=== PATIENT | male | born 1965 | race Caucasian/White ===

== ENCOUNTER 2021-10-05 19:36 | Emergency (ER) | payer OTHER ==
[~2021-10-05] VITALS: Ht 167.6 cm; Wt 77.1 kg
[2021-10-05 20:13] VITALS: BP 152/93
[2021-10-05] MEDS ORDERED: IBUPROFEN 400 MG TABLET ONE (20:52)
[2021-10-05] MEDS ORDERED: IBUPROFEN 400 MG TABLET PO ONE (21:00)
[2021-10-05] MEDS ORDERED: IBUP-1957 PO (21:47)
--- NOTE | 2021-10-05 21:52 | NUR ---
Patient discharged to home in stable condition. Written and verbal after care instructions given. Patient verbalizes understanding of instruction.
== END 2021-10-05 21:52 | disposition home or self-care (01) ==
LOC: ER 19:50
DX: S49.91XA Unspecified injury of right shoulder and upper arm, initial encounter (principal); Z60.2 Problems related to living alone; X50.0XXA Overexertion from strenuous movement or load, initial encounter; Y93.89 Activity, other specified; Y92.89 Other specified places as the place of occurrence of the external cause; Y99.8 Other external cause status
CPT/HCPCS: 73030-TC

== ENCOUNTER 2023-05-19 10:51 | Inpatient (IN) | payer OTHER ==
[~2023-05-19] VITALS: Ht 172.7 cm; Wt 72.1 kg
[~2023-05-19 10:51] MED LIST: IBUP-1957 PO
[2023-05-19 11:22] LABS: BASOPHILS # (AUTO) 0.1 K/uL (0.0-0.2); BASOPHILS % (AUTO) 1.1 % (0.0-2.0); CALCIUM, SERUM 7.6 mg/dL (8.5-10.1); CARBON DIOXIDE 21 mmol/L (21-32); CHLORIDE 105 mmol/L (98-107); EOSINOPHILS % (AUTO) 0.2 % (0.0-6.0); GLUCOSE 106 mg/dL (74-106); HEMATOCRIT 42 % (39-51); HEMOGLOBIN 13.6 g/dL (13.5-17.5); LYMPHOCYTES # (AUTO) 1.2 K/uL (0.8-4.8); LYMPHOCYTES % (AUTO) 23.2 % (20.0-44.0); MEAN CORPUSCULAR HEMOGLOBIN 27 PG (26.0-33.0); MEAN CORPUSCULAR HGB CONC 33 g/dl (31.0-36.0); MEAN CORPUSCULAR VOLUME 83 fL (80-96); MONOCYTES # (AUTO) 0.4 K/uL (0.1-1.30); MONOCYTES % (AUTO) 7.5 % (2.0-12.0); NEUTROPHILS # (AUTO) 3.6 K/uL (1.8-8.9); PLATELET COUNT (AUTO) 160 K/uL (150-450); POTASSIUM 3.8 mmol/L (3.5-5.1); RED BLOOD CELL COUNT(AUTO) 5.04 MIL/uL (4.5-6.0); RED CELL DISTRIBUTION WIDTH 21.2 % (11.5-15.0); SODIUM SERUM 137 mmol/L (136-145); UREA NITROGEN, BLOOD 27 mg/dL (7-18); WHITE BLOOD COUNT (AUTO) 5.4 K/uL (4.3-11.0)
[2023-05-19 11:30] LABS: ALANINE AMINOTRANSFERASE 271 U/L (12-78); ALBUMIN 2.9 g/dL (3.4-5.0); ALCOHOL, BLOOD 518 mg/dL (0-10); ALKALINE PHOSPHATASE 59 U/L (46-116); ASPARTATE AMINOTRANSFERASE 257 U/L (15-37); BILIRUBIN,DIRECT 0.4 mg/dL (0.0-0.2); BILIRUBIN,TOTAL 0.6 mg/dL (0.2-1.0); SALICYLATE 0.4 mg/dL (2.8-20.0); TOTAL PROTEIN, SERUM 6.6 g/dL (6.4-8.2)
[2023-05-19 11:31] LABS: ACETAMINOPHEN <10 ug/ml (10-30)
[2023-05-19 11:42] LABS: APPEARANCE,URINE Clear (CLEAR); BILIRUBIN,URINE Negative (NEGATIVE); BLOOD, URINE Trace-intact Ery/uL (NEGATIVE); COLOR,URINE YELLOW (YELLOW); KETONES,URINE Trace mg/dL (NEGATIVE); LEUKOCYTE ESTERASE ,URINE Negative (NEGATIVE); NITRITE, URINE Negative (NEGATIVE); PROTEIN,URINE Trace mg/dl (NEGATIVE); UGLUCOSE Negative (NEGATIVE)
[2023-05-19 11:49] LABS: ADD URINE CULTURE NO; AMPHETAMINE, URINE NEGATIVE (NEGATIVE); BACTERIA,URINE Few /HPF (None Seen); BARBITURATE, URINE NEGATIVE (NEGATIVE); BENZODIAZEPINE, URINE NEGATIVE (NEGATIVE); CANNABINOID, URINE NEGATIVE (NEGATIVE); COCCAINE, URINE NEGATIVE (NEGATIVE); OPIATE, URINE NEGATIVE (NEGATIVE); PHENCYCLIDINE SCREEN,URINE NEGATIVE (NEGATIVE); SQUAMOUS EPITHELIAL CELL,UR Few /HPF (None Seen); WBC,URINE 0-2 /HPF (0-3)
[2023-05-19] MEDS ORDERED: ONDANSETRON HCL/PF 4 MG/2 ML VIAL ONE (15:47)
[2023-05-19] MEDS ORDERED: PANTOPRAZOLE 40 MG VIAL ONE (15:47)
[2023-05-19] MEDS: ONDANSETRON HCL/PF 4 MG/2 ML VIAL IV ONE (15:54)
[2023-05-19] MEDS: PANTOPRAZOLE 80 MG in IV NS 0.9% 500 ML IV ONE ×2 (15:54→15:55)
[2023-05-19] MEDS: IV NS 0.9% 500 ML BAG IV ONE (15:59)
[2023-05-19] MEDS ORDERED: BUPR300T52 PO (16:08)
[2023-05-19] MEDS ORDERED: HYDR50TA61 PO (16:08)
[2023-05-19] MEDS ORDERED: BUSP30TA2 PO (16:08)
[2023-05-19] MEDS ORDERED: ESCI10TA PO (16:08)
[2023-05-19] MEDS ORDERED: TRAZ-257 PO (16:08)
[2023-05-19] MEDS ORDERED: MIRT-91 PO (16:08)
[2023-05-19] MEDS: LORAZEPAM INJ 2 MG/ML VIAL IV ONE (16:30)
[2023-05-19] MEDS ORDERED: LORAZEPAM INJ 2 MG/ML VIAL ONE (16:31)
[2023-05-19 16:41] LABS: HEMOGLOBIN 12.4 g/dL (13.5-17.5)
[2023-05-19] MEDS ORDERED: diphenhydrAMINE HCL 50 MG/ML VIAL ONE (16:56)
[2023-05-19] MEDS: diphenhydrAMINE HCL 50 MG/ML VIAL IV ONE (17:00)
[2023-05-19] MEDS ORDERED: CEFTRIAXONE 1 G VIAL ONE (18:11)
[2023-05-19] MEDS ORDERED: LIDOCAINE 1% INJ 50 ML MDV IJ ONE (18:13)
[2023-05-19] MEDS: CEFTRIAXONE 1 G VIAL IM ONE (18:15)
[2023-05-19] MEDS: OCTREOTIDE 50 MCG in IV NS 0.9% 50 ML IJ ONE (18:35)
[2023-05-19] MEDS ORDERED: Z GUARD REMEDY 4 OZ OINT TP PRN (20:30)
[2023-05-19] MEDS ORDERED: OCTREOTIDE 500 MCG in IV NS 0.9% 99 ML IV PRN (20:30)
[2023-05-19] MEDS ORDERED: IV NS 0.9% 250 ML IV ONE (20:37)
[2023-05-19] MEDS ORDERED: IOHEXOL-300 100 ML VIAL IV ONE (20:37)
[2023-05-19] MEDS: Thiamine 100 MG in IV D5W 50 ML IV ONE (21:39)
[2023-05-19] MEDS: CEFTRIAXONE 1 G in IV D5W 50 ML IV SCH (21:40)
[2023-05-19] MEDS: PANTOPRAZOLE 40 MG VIAL IV SCH (21:51)
[2023-05-19] MEDS: LORAZEPAM INJ 2 MG/ML VIAL IV PRN (21:58)
[2023-05-20] VITALS: BP 148/86; TEMP 97.5
[2023-05-20] MEDS: OCTREOTIDE 1,250 MCG in IV NS 0.9% 247.5 ML IV PRN (00:52)
[2023-05-20] MEDS: IV D5/0.45 NACL 1,000 ML IV PRN (00:53)
[2023-05-20] MEDS: OLANZAPINE 10 MG VIAL IM ONE (01:22)
[2023-05-20] MEDS ORDERED: SOD FERRIC GLUC 62.5 MG/5 ML AMPUL IV ONE (03:09)
[2023-05-20] MEDS ORDERED: METRONIDAZOLE 500MG/ NS 100ML 100 ML IV ONE (03:09)
[2023-05-20] MEDS: METRONIDAZOLE 500MG/ NS 100ML 500 MG in PREMIX 1 EA IV SCH (03:32)
[2023-05-20 04:00] VITALS: BP 135/80; TEMP 97.5
[2023-05-20] MEDS: SOD FERRIC GLUC 125 MG in IV NS 0.9% 100 ML IV SCH ×2 (04:51→14:28)
[2023-05-20 07:05] LABS: BASOPHILS # (AUTO) 0.1 K/uL (0.0-0.2); BASOPHILS % (AUTO) 0.9 % (0.0-2.0); EOSINOPHILS % (AUTO) 0.4 % (0.0-6.0); HEMATOCRIT 28 % (39-51); HEMOGLOBIN 9.3 g/dL (13.5-17.5); LYMPHOCYTES # (AUTO) 1.2 K/uL (0.8-4.8); LYMPHOCYTES % (AUTO) 18.9 % (20.0-44.0); MEAN CORPUSCULAR HEMOGLOBIN 28 PG (26.0-33.0); MEAN CORPUSCULAR HGB CONC 33 g/dl (31.0-36.0); MEAN CORPUSCULAR VOLUME 84 fL (80-96); MONOCYTES # (AUTO) 0.4 K/uL (0.1-1.30); MONOCYTES % (AUTO) 5.7 % (2.0-12.0); NEUTROPHILS # (AUTO) 4.8 K/uL (1.8-8.9); NEUTROPHILS % (AUTO) 74.1 % (43.0-81.0); PLATELET COUNT (AUTO) 113 K/uL (150-450); RED BLOOD CELL COUNT(AUTO) 3.33 MIL/uL (4.5-6.0); RED CELL DISTRIBUTION WIDTH 20.8 % (11.5-15.0); WHITE BLOOD COUNT (AUTO) 6.5 K/uL (4.3-11.0)
[2023-05-20 07:10] LABS: ALBUMIN 2.5 g/dL (3.4-5.0); BILIRUBIN,DIRECT 0.4 mg/dL (0.0-0.2); BILIRUBIN,TOTAL 1.1 mg/dL (0.2-1.0); TOTAL PROTEIN, SERUM 5.8 g/dL (6.4-8.2)
[2023-05-20 07:31] LABS: THYROID STIMULATING HORMONE 0.437 uIU/mL (0.358-3.74)
[2023-05-20 07:37] LABS: CALCIUM, SERUM 7.3 mg/dL (8.5-10.1); MAGNESIUM 1.4 mg/dL (1.8-2.4); PHOSPHORUS 2.8 mg/dL (2.5-4.9); POTASSIUM 4.2 mmol/L (3.5-5.1)
[2023-05-20 08:00] VITALS: BP 128/85; TEMP 98.2; O2SAT 98
[2023-05-20] MEDS: FOLIC ACID 1 MG TABLET PO SCH (08:37)
[2023-05-20] MEDS: THIAMINE HCL 100 MG TABLET PO SCH (08:38)
[2023-05-20] MEDS: Magnesium 1GM/D5W 100ML PREMIX 100 ML IV SCH (10:00)
[2023-05-20 12:00] VITALS: BP 138/87; TEMP 98.2; O2SAT 98
[2023-05-20] MEDS ORDERED: SOD FERRIC GLUC 125 MG in IV NS 0.9% 100 ML IV SCH (14:00)
[2023-05-20 16:00] VITALS: BP 130/81; TEMP 97.8; O2SAT 97
[2023-05-20 20:00] VITALS: TEMP 98.2
[2023-05-21] VITALS: BP 133/92; TEMP 98.2; O2SAT 100
[2023-05-21] MEDS: ONDANSETRON HCL/PF 4 MG/2 ML VIAL IVP PRN (01:22)
[2023-05-21 04:00] VITALS: BP 141/93; TEMP 98.1; O2SAT 100
[2023-05-21] MEDS: ACETAMINOPHEN 325 MG TABLET PO PRN (05:22)
[2023-05-21 06:50] LABS: BASOPHILS % (AUTO) 0.7 % (0.0-2.0); EOSINOPHILS # (AUTO) 0.1 K/uL (0.0-0.7); EOSINOPHILS % (AUTO) 1.3 % (0.0-6.0); HEMATOCRIT 27 % (39-51); HEMOGLOBIN 9.2 g/dL (13.5-17.5); LYMPHOCYTES # (AUTO) 1.1 K/uL (0.8-4.8); LYMPHOCYTES % (AUTO) 16.6 % (20.0-44.0); MEAN CORPUSCULAR HEMOGLOBIN 28 PG (26.0-33.0); MEAN CORPUSCULAR HGB CONC 34 g/dl (31.0-36.0); MEAN CORPUSCULAR VOLUME 84 fL (80-96); MONOCYTES # (AUTO) 0.5 K/uL (0.1-1.30); MONOCYTES % (AUTO) 7.3 % (2.0-12.0); NEUTROPHILS # (AUTO) 4.9 K/uL (1.8-8.9); NEUTROPHILS % (AUTO) 74.1 % (43.0-81.0); PLATELET COUNT (AUTO) 121 K/uL (150-450); RED BLOOD CELL COUNT(AUTO) 3.25 MIL/uL (4.5-6.0); RED CELL DISTRIBUTION WIDTH 20.9 % (11.5-15.0); WHITE BLOOD COUNT (AUTO) 6.6 K/uL (4.3-11.0)
[2023-05-21 06:57] LABS: CALCIUM, SERUM 7.4 mg/dL (8.5-10.1); CREATININE 1.1 mg/dL (0.6-1.3); MAGNESIUM 2.1 mg/dL (1.8-2.4); PHOSPHORUS 2.9 mg/dL (2.5-4.9); POTASSIUM 3.7 mmol/L (3.5-5.1)
[2023-05-21 08:00] VITALS: BP 138/87; TEMP 97.9; O2SAT 100
[2023-05-21] MEDS: MIRTAZAPINE 15 MG TABLET PO SCH (11:49)
[2023-05-21] MEDS: ESCITALOPRAM OXALATE (10 MG) 10 MG TABLET PO SCH (11:50)
[2023-05-21] MEDS: BUPROPION XL 150 MG TAB.ER.24 PO SCH (11:50)
[2023-05-21 12:00] VITALS: BP 128/86; TEMP 97.6; O2SAT 100
[2023-05-21] MEDS: CHLORDIAZEPOXIDE HCL 25 MG CAPSULE PO SCH (12:05)
[2023-05-21 16:00] VITALS: BP 130/90; TEMP 98; O2SAT 100
[2023-05-21] MEDS ORDERED: MIDAZOLAM HCL 2 MG/2ML VIAL ONE (16:16)
[2023-05-21] MEDS ORDERED: ANESTHESIA TRAY IN PYXIS 1 EA TRAY MC ONE (16:18)
[2023-05-21 20:00] VITALS: BP 122/80; TEMP 98; O2SAT 100
[2023-05-21] MEDS: hydrOXYzine 10 MG TABLET PO SCH (22:06)
[2023-05-22] VITALS: BP 124/72; TEMP 98.2; O2SAT 100
[2023-05-22] MEDS: TRAZODONE 50 MG TABLET PO PRN (00:38)
[2023-05-22 04:00] VITALS: BP 122/70; TEMP 98; O2SAT 100
[2023-05-22 07:08] LABS: BASOPHILS % (AUTO) 0.3 % (0.0-2.0); EOSINOPHILS # (AUTO) 0.1 K/uL (0.0-0.7); HEMATOCRIT 26 % (39-51); HEMOGLOBIN 8.7 g/dL (13.5-17.5); LYMPHOCYTES # (AUTO) 1.4 K/uL (0.8-4.8); LYMPHOCYTES % (AUTO) 20.8 % (20.0-44.0); MEAN CORPUSCULAR HEMOGLOBIN 29 PG (26.0-33.0); MEAN CORPUSCULAR HGB CONC 34 g/dl (31.0-36.0); MEAN CORPUSCULAR VOLUME 86 fL (80-96); MONOCYTES # (AUTO) 0.4 K/uL (0.1-1.30); MONOCYTES % (AUTO) 6.3 % (2.0-12.0); NEUTROPHILS # (AUTO) 4.7 K/uL (1.8-8.9); NEUTROPHILS % (AUTO) 70.6 % (43.0-81.0); PLATELET COUNT (AUTO) 115 K/uL (150-450); RED BLOOD CELL COUNT(AUTO) 2.98 MIL/uL (4.5-6.0); RED CELL DISTRIBUTION WIDTH 21.7 % (11.5-15.0); WHITE BLOOD COUNT (AUTO) 6.7 K/uL (4.3-11.0)
[2023-05-22 07:42] LABS: CALCIUM, SERUM 7.3 mg/dL (8.5-10.1); CREATININE 1.1 mg/dL (0.6-1.3); MAGNESIUM 1.9 mg/dL (1.8-2.4); PHOSPHORUS 3.1 mg/dL (2.5-4.9); POTASSIUM 3.8 mmol/L (3.5-5.1)
[2023-05-22 08:00] VITALS: BP 109/72; TEMP 97.4; O2SAT 97
[2023-05-22] MEDS ORDERED: PANT40TA2 PO (11:32)
[2023-05-22 12:00] VITALS: BP 124/69; TEMP 97.9; O2SAT 98
[2023-05-22] MEDS: METRONIDAZOLE 500 MG TABLET PO SCH (14:05)
[2023-05-22 16:00] VITALS: BP 121/68; TEMP 97.5; O2SAT 100
== END 2023-05-22 18:19 | disposition home or self-care (01) | DRG 243 ==
LOC: ER 11:14 → TELE1 17:30
PROVIDERS: ADMIT Nurse Practitioner Family; ATTEND Nurse Practitioner Acute Care
PROC: 0DB68ZX Excision of Stomach, Via Natural or Artificial Opening Endoscopic, Diagnostic (ICD-10-PCS; principal; 2023-05-21)
DX: K20.91 Esophagitis, unspecified with bleeding (principal); E44.0 Moderate protein-calorie malnutrition; K29.71 Gastritis, unspecified, with bleeding; E88.09 Other disorders of plasma-protein metabolism, not elsewhere classified; K70.9 Alcoholic liver disease, unspecified; F10.129 Alcohol abuse with intoxication, unspecified; Y90.8 Blood alcohol level of 240 mg/100 ml or more; F32.A Depression, unspecified; I10 Essential (primary) hypertension; K44.9 Diaphragmatic hernia without obstruction or gangrene; R74.01 Elevation of levels of liver transaminase levels; M79.89 Other specified soft tissue disorders; Z68.24 Body mass index [BMI] 24.0-24.9, adult; S92.412A Displaced fracture of proximal phalanx of left great toe, initial encounter for closed fracture; S92.515A Nondisplaced fracture of proximal phalanx of left lesser toe(s), initial encounter for closed fracture; Z20.822 Contact with and (suspected) exposure to COVID-19; S92.425A Nondisplaced fracture of distal phalanx of left great toe, initial encounter for closed fracture; X58.XXXA Exposure to other specified factors, initial encounter; Y93.9 Activity, unspecified; Y92.89 Other specified places as the place of occurrence of the external cause
CPT/HCPCS: 36415; 73630-TC; 73660-TC; 76705-TC; 80048-TC; 80076-TC; 81001; 83735-TC; 84100-TC; 84443-TC; 85025-TC; 85027-TC; 87040-TC; A4216; A4223; A6403; C9113; G0378; G0480; J0696; J1200; J2060; J2250; J2354; J2405; J2704; J2916; J3411; J3475; J3490; J7030; J7040; J7050; J7060; Q0177; Q9967

== ENCOUNTER 2023-12-24 09:41 | Emergency (ER) | payer OTHER ==
[~2023-12-24] VITALS: Ht 172.7 cm; Wt 77.1 kg
[~2023-12-24 09:41] MED LIST changes: +BUPR300T52 PO; +BUSP30TA2 PO; +ESCI10TA PO; +HYDR50TA61 PO; -IBUP-1957 PO; +MIRT-91 PO; +PANT40TA2 PO; +TRAZ-257 PO
[2023-12-24] MEDS: IV NS 0.9% 1,000 ML BAG IV ONE (10:10)
[2023-12-24] MEDS ORDERED: ONDANSETRON HCL/PF 4 MG/2 ML VIAL ONE (10:13)
[2023-12-24 10:16] LABS: BASOPHILS # (AUTO) 0.1 K/uL (0.0-0.2); BASOPHILS % (AUTO) 1.7 % (0.0-2.0); EOSINOPHILS % (AUTO) 0.1 % (0.0-6.0); HEMATOCRIT 39 % (39-51); LYMPHOCYTES # (AUTO) 1.7 K/uL (0.8-4.8); LYMPHOCYTES % (AUTO) 26.9 % (20.0-44.0); MEAN CORPUSCULAR HEMOGLOBIN 18 PG (26.0-33.0); MEAN CORPUSCULAR HGB CONC 31 g/dl (31.0-36.0); MEAN CORPUSCULAR VOLUME 60 fL (80-96); MONOCYTES # (AUTO) 0.4 K/uL (0.1-1.30); MONOCYTES % (AUTO) 7.1 % (2.0-12.0); NEUTROPHILS % (AUTO) 64.2 % (43.0-81.0); PLATELET COUNT (AUTO) 431 K/uL (150-450); RED BLOOD CELL COUNT(AUTO) 6.51 MIL/uL (4.5-6.0); RED CELL DISTRIBUTION WIDTH 23.3 % (11.5-15.0); WHITE BLOOD COUNT (AUTO) 6.3 K/uL (4.3-11.0)
[2023-12-24] MEDS: ONDANSETRON HCL/PF 4 MG/2 ML VIAL IVP ONE (10:20)
[2023-12-24 10:38] LABS: ALBUMIN 3.1 g/dL (3.4-5.0); BILIRUBIN,DIRECT 0.2 mg/dL (0.0-0.2); BILIRUBIN,TOTAL 1.1 mg/dL (0.2-1.0); CALCIUM, SERUM 7.8 mg/dL (8.5-10.1); CREATININE 0.9 mg/dL (0.6-1.3); POTASSIUM 5.6 mmol/L (3.5-5.1); TOTAL PROTEIN, SERUM 7.6 g/dL (6.4-8.2)
[2023-12-24] MEDS: Thiamine 500 MG in IV D5W 50 ML IV STA (10:48)
[2023-12-24 11:03] LABS: ANISOCYTOSIS 2+; HYPOCHROMASIA 1+; LYMPHOCYTES % (MANUAL) 24 % (16-48); MONOCYTES % (MANUAL) 7 % (0-11.0); NEUTROPHILS % (MANUAL) 69 (42-76); PLATELET ESTIMATE ADEQUATE
[2023-12-24 11:04] LABS: TARGET CELLS 1+
[2023-12-24] MEDS ORDERED: CHLO25CA22 PO (15:07)
[2023-12-24] MEDS ORDERED: KETOROLAC TROMETHAMINE 15 MG/ML VIAL ONE (19:05)
[2023-12-24] MEDS: KETOROLAC TROMETHAMINE 15 MG/ML VIAL IV ONE (19:12)
[2023-12-24 21:42] VITALS: BP 136/94; TEMP 98.1; O2SAT 94
== END 2023-12-24 21:44 | disposition home or self-care (01) ==
LOC: ER 09:41
DX: F10.129 Alcohol abuse with intoxication, unspecified (principal); E87.5 Hyperkalemia; Z79.899 Other long term (current) drug therapy; Y90.9 Presence of alcohol in blood, level not specified
CPT/HCPCS: 99285; 96365; 96375; 96361; 85025; 80048; 83690; 80076; 36415; 82962; 98960; 85007; J2405; J7060; J7030; J1885; J3411

== ENCOUNTER 2024-05-06 01:35 | Emergency (ER) | payer OTHER ==
[~2024-05-06] VITALS: Ht 165.1 cm; Wt 68.0 kg
[~2024-05-06 01:35] MED LIST changes: +CHLO25CA22 PO
[2024-05-06] MEDS: ONDANSETRON HCL/PF - ER 4 MG/2 ML VIAL IV ONE (03:30)
[2024-05-06] MEDS: IV NS 0.9% 1,000 ML BAG IV ONE (03:30)
[2024-05-06] MEDS ORDERED: ONDANSETRON HCL/PF 4 MG/2 ML VIAL ONE (03:41)
[2024-05-06] MEDS: PHENOBARBITAL SODIUM 130 MG/ML VIAL IV ONE (04:30)
[2024-05-06] MEDS: METOCLOPRAMIDE HCL 10 MG/2 ML VIAL IV ONE (04:30)
[2024-05-06] MEDS ORDERED: METOCLOPRAMIDE HCL 10 MG/2 ML VIAL ONE (04:34)
[2024-05-06] MEDS ORDERED: Thiamine 100 MG/ML VIAL ONE (04:34)
[2024-05-06] MEDS ORDERED: PHENOBARBITAL SODIUM 130 MG/ML VIAL ONE (04:43)
[2024-05-06] MEDS: Thiamine 100 MG in IV D5W 50 ML IV STA (04:44)
[2024-05-06 05:30] LABS: CALCIUM, SERUM 9.1 mg/dL (8.5-10.1); CREATININE 1.2 mg/dL (0.6-1.3); POTASSIUM 3.8 mmol/L (3.5-5.1)
[2024-05-06 05:32] LABS: BASOPHILS % (AUTO) 0.6 % (0.0-2.0); HEMATOCRIT 40 % (39-51); LYMPHOCYTES # (AUTO) 0.7 K/uL (0.8-4.8); MEAN CORPUSCULAR HEMOGLOBIN 22 PG (26.0-33.0); MEAN CORPUSCULAR HGB CONC 30 g/dl (31.0-36.0); MEAN CORPUSCULAR VOLUME 74 fL (80-96); MONOCYTES # (AUTO) 0.4 K/uL (0.1-1.30); MONOCYTES % (AUTO) 5.2 % (2.0-12.0); NEUTROPHILS % (AUTO) 86.2 % (43.0-81.0); PLATELET COUNT (AUTO) 279 K/uL (150-450); RED BLOOD CELL COUNT(AUTO) 5.43 MIL/uL (4.5-6.0); RED CELL DISTRIBUTION WIDTH 26.5 % (11.5-15.0); WHITE BLOOD COUNT (AUTO) 8.2 K/uL (4.3-11.0)
[2024-05-06] MEDS: PHENOBARBITAL SODIUM 130 MG/ML VIAL ONE (05:32)
[2024-05-06 05:36] LABS: ALBUMIN 3.4 g/dL (3.4-5.0); BILIRUBIN,TOTAL 12.9 mg/dL (0.2-1.0); TOTAL PROTEIN, SERUM 7.1 g/dL (6.4-8.2)
[2024-05-06 06:55] VITALS: BP 168/97; TEMP 97.9; O2SAT 95
[2024-05-06] MEDS ORDERED: CHLO25CA22 PO (08:09)
== END 2024-05-06 06:56 | disposition home or self-care (01) ==
LOC: ER 01:39
DX: F10.139 Alcohol abuse with withdrawal, unspecified (principal); R11.2 Nausea with vomiting, unspecified; R25.1 Tremor, unspecified; Z79.899 Other long term (current) drug therapy; Y90.9 Presence of alcohol in blood, level not specified
CPT/HCPCS: 99285; 96365; 96375; 96361; 85025; 83690; 36415; 80053; J2560 ×2; J2765; J2405 ×2; J7060 ×2; J7030; J3411 ×2

== ENCOUNTER 2024-05-19 00:31 | Emergency (ER) | payer OTHER ==
[~2024-05-19] VITALS: Ht 152.4 cm; Wt 78.9 kg
[2024-05-19] MEDS ORDERED: CHLO25CA22 PO ×2 (01:54→01:57)
[2024-05-19 02:07] VITALS: BP 119/84; TEMP 98.2; O2SAT 97
== END 2024-05-19 02:07 | disposition home or self-care (01) ==
LOC: ER 00:33
DX: F10.129 Alcohol abuse with intoxication, unspecified (principal); F41.9 Anxiety disorder, unspecified; Z79.899 Other long term (current) drug therapy; Y90.9 Presence of alcohol in blood, level not specified